=== PATIENT | male | born 1960 ===

== ENCOUNTER 2020-04-18 06:00 | Outpatient (RCR) | payer BC, SELFPAY | END 2020-04-30 23:59 | disposition home or self-care (01) | LOC: TPT 06:00 | PROVIDERS: Referring Provider Orthopaedic Surgery Sports Medicine; Visit Provider Orthopaedic Surgery Sports Medicine | DX: G89.29 Other chronic pain (principal); M25.511 Pain in right shoulder | CPT/HCPCS: 97110; 97161 ==

== ENCOUNTER 2020-05-01 06:00 | Outpatient (RCR) | payer BC, SELFPAY | END 2020-05-30 23:59 | disposition home or self-care (01) | LOC: TPT 06:00 | PROVIDERS: Referring Provider Orthopaedic Surgery Sports Medicine; Visit Provider Orthopaedic Surgery Sports Medicine | DX: G89.29 Other chronic pain (principal); M25.511 Pain in right shoulder | CPT/HCPCS: 97110 ==

== ENCOUNTER 2023-05-26 06:00 | Outpatient (RCR) | payer OTHER, SELFPAY | END 2023-05-30 23:59 | disposition home or self-care (01) | LOC: TPT 06:00 | PROVIDERS: Visit Provider Orthopaedic Surgery Sports Medicine | DX: M25.551 Pain in right hip (principal) | CPT/HCPCS: 97162 ==

== ENCOUNTER 2023-05-31 06:00 | Outpatient (RCR) | payer OTHER, SELFPAY | END 2023-06-30 23:59 | disposition home or self-care (01) | LOC: TPT 06:00 | PROVIDERS: Visit Provider Orthopaedic Surgery Sports Medicine | DX: M25.551 Pain in right hip (principal) | CPT/HCPCS: 97110; 97140 ==

== ENCOUNTER 2023-07-01 06:00 | Outpatient (RCR) | payer OTHER, SELFPAY | END 2023-07-08 23:59 | disposition home or self-care (01) | LOC: TPT 06:00 | PROVIDERS: Visit Provider Orthopaedic Surgery Sports Medicine | DX: M25.551 Pain in right hip (principal); M54.6 Pain in thoracic spine | CPT/HCPCS: 97110 ==